=== PATIENT | female | born 1970 | race Caucasian/White ===

== ENCOUNTER 2023-07-12 17:01 | Emergency (ER) | payer SELFPAY ==
--- NOTE | ~2023-07-12 | XR_ITS ---
EXAMINATION: XR elbow LT min 3V DATE: 07/12/2023 17:24 INDICATION: Left elbow injury. TECHNIQUE: 4 views of left elbow were obtained. COMPARISON: None. FINDINGS: Bone alignment is normal. No fracture. Joint spaces are normal. There is an elbow joint eff usion. IMPRESSION: 1. Elbow joint effusion. No fracture identified. Reviewed, dictated and finalized at location E.
--- NOTE | ~2023-07-12 | XR_ITS ---
EXAMINATION: XR elbow RT min 3V DATE: 07/12/2023 17:24 INDICATION: Right elbow injury. TECHNIQUE: 4 views of right elbow were obtained. COMPARISON: None. FINDINGS: Bone alignment is normal. There is a nondisplaced fracture of radial head. Joint spaces are normal. There is a large elbow joint effusion. IMPRESSION: 1. Nondisplaced fracture of radial head. 2. Large elbow joint effusion. Reviewed, dictated and finalized at location E.
[2023-07-12 17:01] VITALS: BP 175/105; PULSE 84; RESP 18; TEMP 36.5; O2SAT 97
--- NOTE | 2023-07-12 17:10 | ED.GENADULT ---
HPI - General Adult General Chief complaint: Fall Stated complaint: fall; bilateral arm pain Time Seen by Provider: 07/12/23 17:10 History of Present Illness HPI narrative: 52YO WOMAN PRESENTS WITH BILATERAL ELBOW PAIN AFTER TRIPPING AND FALLING, FOOSH BOTH HANDS. PAIN OCCURS AT FULL EXTENSION, FULL FLEXION. NO NECK PAIN, NUMBNESS, WEAKNESS. NO HEAD TRAUMA. NO WRIST PAIN. Related Data Allergies Allergy/AdvReac Type Severity Reaction Status Date / Time No Known Allergies Allergy Verified 07/12/23 17:10 Review of Systems Review of Systems: All systems reviewed & are unremarkable except as noted in HPI and below Constitutional: Constitutional: Denies fever(s) ENT: Denies dysphagia Cardiovascular: Cardiovascular: Denies chest pain Respiratory: Respiratory: Denies dyspnea Exam Const: General: healthy appearing and no acute distress Nutritional Appearance: well nourished Eyes: Conjunctivae: conjunctivae normal Resp: Effort & Inspection: normal respiratory effort and not labored Auscultation: clear to auscultation bilaterally Cardio: Rate: regular rate GI: Inspection: non-distended Back/Spine/Pelvis: Other: NO MIDLINE SPINAL TENDERNESS Skin: General skin exam: normal color, no jaundice and no pallor Neuro: General: patient oriented x3, moves all extremities, no focal motor deficits and CN's II-XI intact bilaterally Speech: normal speech Gait exam (Neuro): Normal gait present Extrem: General: normal to inspection Other: TENDER OVER MEDIAL AND LATERAL EPICONDYLES. TENDER TO FULL EXTENSION OR FULL FLEXION, BUT IN BETWEEN NO PAIN. Course Course Emergency Course: PT WITH SUSPECTED BILATERAL RADIAL HEAD FRACTURES. BECAUSE THESE ARE NONDISPLACED, WE CAN PURSUE CONSERVATIVE MANAGEMENT WITH SLING IMMOBILIZATION FOR 1-2 WEEKS. PATIENT WILL FOLLOW-UP ORTHOPEDICS BACK HOME IN [place]. Medical Decision Making [facility] Narrative Medical decision making narrative: FOOSH DDX CONTUSION, FRACTURE, ARTHRITIS, BURSITIS Imaging Data Attestation: I personally reviewed and interpreted this imaging study as follows: My impression: RIGHT ELBOW WITH POSITIVE SAIL SIGN AND RADIAL HEAD FRACTURE LEFT ELBOW IS NEGATIVE; HOWEVER PT CLINICALLY HAS THE SAME DESCRIPTION OF PAIN, SAME MECHANISM OF INJURY, AND SAME EXAMINATION FINDINGS ON THE LEFT. PROBABLE RADIOGRAPHICALLY OCCULT RADIAL HEAD FRACTURE. Discharge Plan Discharge Clinical Impression: Closed nondisplaced fracture of head of right radius Qualifiers: Encounter type: initial encounter Qualified Code(s): S52.124A - Nondisplaced fracture of head of right radius, initial encounter for closed fracture Closed fracture of radial head Qualifiers: Encounter type: initial encounter Fracture alignment: nondisplaced Laterality: left Qualified Code(s): S52.125A - Nondisplaced fracture of head of left radius, initial encounter for closed fracture Patient Disposition: Home, Self-Care Condition: Improved Instructions: Elbow Fracture (DC) Additional Instructions: Keep your slings on at all time for the next 1-2 weeks (you will get further specific guidance at your Orthopedic follow-up appointment) to immobilize the elbow joint and allow the bones to heal. To wash, you can have family members remove the slings temporarily and help bathe you. Do not bathe yourself as the range of motions of your arms could worsen the injury. To help swelling, keep your ABNER wraps on for gentle compression and, whenever you lie down, elevate the elbows gently on pillows above the level of your heart. For pain, take the prescribed medications as needed. You can also add Ibuprofen 800 mg every 6 hours as needed. Follow-up with Orthopedics in the next week for repeat x-rays and further guidance. Prescriptions: New hydrocodone-acetaminophen 5-325 mg tablet 1 tablet PO Q6H PRN (Reason: severe pain only) Qty: 30 0RF methocarbamol 500 mg tablet 1,000 mg PO Q6H PRN (Reas
[2023-07-12] MEDS: methocarbamoL 500 MG TABLET 1000 MG PO (17:24)
[2023-07-12] MEDS: KETOROLAC (*BKC) 60 MG/2 ML VIAL IM (17:25)
--- NOTE | 2023-07-12 18:22 | PC.NURSE ---
pt is waiting for spouse arrival to take her home. spouse eta is 5 hours. erp requests pt remain as er pt during this wait to provide opportunity to manage pain until departure.
[2023-07-12 19:00] VITALS: BP 178/88; PULSE 78; RESP 18; TEMP 36.6; O2SAT 99
--- NOTE | 2023-07-12 19:13 | PC.NURSE ---
Report recieved, pt resting in room, c/o increased pain and pain wearing off. New order received for pain meds. Noted bilat arms in sling c ice in place. Pt awaiting her ride which will be another 4-5 hrs until rice arrives. Call moreno at pt side.
[2023-07-12] MEDS: HYDROcodone/acetaminophen (*CRX) 10-325 MG TABLET 2 TAB PO (19:19)
[2023-07-12 21:10] VITALS: BP 154/74; PULSE 74; RESP 18; O2SAT 99
[2023-07-12] MEDS: HYDROcodone/acetaminophen (*CRX) 5-325 MG TABLET PO (22:11)
--- NOTE | 2023-07-12 22:25 | PC.NURSE ---
Pt has new ice packs in place to bilat elbows and arms in bilat slings. Pts spouse here for ride home and instructions for d/c and f/u c ortho in her hometown discussed. Pt left ambulatory c spouse and instructions and disc given.
[2023-07-12 22:27] VITALS: BP 144/81; PULSE 90; RESP 18; TEMP 36.6; O2SAT 100
== END 2023-07-12 22:30 | disposition home or self-care (01) ==
PROVIDERS: Emergency Provider Emergency Medicine
DX: S52.124A Nondisplaced fracture of head of right radius, initial encounter for closed fracture (principal); S52.125A Nondisplaced fracture of head of left radius, initial encounter for closed fracture; W01.0XXA Fall on same level from slipping, tripping and stumbling without subsequent striking against object, initial encounter
CPT/HCPCS: 73080; 96372; 99284; A4565; A9270; J1885